=== PATIENT | male | born 1975 | race Caucasian/White ===

== ENCOUNTER → 2021-09-06 08:44 | Outpatient (CLI) | payer BC, SELFPAY ==
[2021-09-06 20:23] LABS: SARS-CoV-2 RNA PCR Negative
== END ==
PROVIDERS: PCP Internal Medicine; Visit Provider Nurse Practitioner
DX: R19.7 Diarrhea, unspecified (principal); R53.83 Other fatigue
CPT/HCPCS: C9803; U0003; U0005